=== PATIENT | male | born 1995 ===

== ENCOUNTER 2016-09-09 05:32 | Emergency (ER) | payer MEDICAID, OTHER ==
[~2016-09-09] VITALS: Ht 175.3 cm; Wt 65.0 kg
--- NOTE | 2016-09-09 05:54 | PD ---
HPI Chief Complaint: Tobar act Time Seen by Provider: 05:49 Travel History International Travel<30 days: No Contact w/Intl Traveler<30days: No Traveled to known affect area: No History of Present Illness HPI 21-year-old white male presents to emergency department under Tobar act by PD. The patient made suicidal statements to his significant other. The patient states that he gets upset over things that have happened in the past. He made suicidal statements but has no intentions on hurting himself. He denies any toxic ingestions. He does admit to drinking alcohol last evening. He denies making any suicide gesture cuts on his body. 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 The patient reports an insect bite to his right earlobe 2 days ago causing it to become swollen and bruised. It open a ruptured last evening and his significant other squeezed it. He denies any other medical complaints. He denies any fever or chills. No chest pain or shortness of breath. PFSH Past Medical History Medical History: Denies Significant Hx Tetanus Vaccination: < 5 Years Past Surgical History Surgical History: No Previous Surgery Social History Alcohol Use: Yes Tobacco Use: Yes Substance Use: Yes Allergies-Medications (Allergen,Severity, Reaction): Coded Allergies: Amoxicillin (Verified Allergy, Unknown, 09/09/16) Per pt. Penicillin (Verified Allergy, Unknown, 09/09/16) Per pt. Uncoded Allergies: "-cillins" (Allergy, Unknown, 09/09/16) Per pt...."my mother told me not to take them". Stated she told him he was allergic to them. Reported Meds & Prescriptions Reported Meds & Active Scripts Active No Active Prescriptions or Reported Medications Review of Systems Except as stated in HPI: all other systems reviewed are Neg Psychiatric: Positive: Depression, Mood Disorder, Substance Abuse, No: Anxiety , Suicidal Ideations, Disorder of Thought, Homicidal Ideation Physical Exam Narrative GENERAL: Well-nourished, well-developed patient. SKIN: Warm and dry. The patient's right ear lobe is edematous and there is an open draining lesion to the posterior aspect of the pinna. The patient has suicide gesture cuts to the right forearm and right lower abdomen. HEAD: Normocephalic and atraumatic. EYES: No scleral icterus. No injection or drainage. ENT: No nasal drainage noted. Mucous membranes pink. Airway patent. NECK: Supple, trachea midline. Moves head freely without obvious discomfort. CARDIOVASCULAR: Regular rate and rhythm without murmurs, gallops, or rubs. RESPIRATORY: Breath sounds equal bilaterally. No accessory muscle use. GASTROINTESTINAL: Abdomen soft, non-tender, nondistended. EXTREMITIES: No cyanosis or edema. BACK: Nontender without obvious deformity. No CVA tenderness. NEURO: Patient is alert and oriented. no sensorimotor deficits. Nonfocal. Normal speech. PSYCH: Poor insight and judgment. No delusions. No auditory hallucinations. Data Data Last Documented VS Vital Signs Date Time Temp Pulse Resp B/P Pulse Ox O2 Delivery O2 Flow Rate FiO2 09/09/16 11:50 98.5 89 18 116/59 98 Room Air Orders Complete Blood Count With Diff (09/09/16 05:48) Comprehensive Metabolic Panel (09/09/16 05:48) Psych Screen (09/09/16 05:48) Drug Screen, Random Urine (09/09/16 05:48) Alcohol (Ethanol) (09/09/16 05:48) Salicylates (Aspirin) (09/09/16 05:48) Tylenol (Acetaminophen) (09/09/16 05:48) Diphenhydramine Inj (Benadryl Inj) (09/09/16 06:00) Haloperidol Inj (Haldol Inj) (09/09/16 06:00) Restraints Violent (09/09/16 05:55) Wound Culture And Gram Stain (09/09/16 09:18) Sulfamet-Trimeth Ds 800-160 Mg (Bactrim (09/09/16 09:30) Cephalexin (Keflex) (09/09/16 12:00) Diet Regular Basic (09/09/16 Lunch) Diet Regular Basic (09/09/16 Dinner) Labs Laboratory Tests Test 09/09/16 06:15 White Blood Count 17.0 TH/MM3 Red Blood Count 5.35 MIL/MM3 Hemoglobin 16.8 GM/DL Hematocrit 49.0 % Mean Corpuscular Volume 91.4 FL Mean Corpuscular Hemoglobin 31.4 PG Mean Corpuscular Hemoglobin 34.4 % Concent Red Cell Distribution Width 13.1 % Platelet Count 296 TH/MM3 Mean Platelet Volume 9.2 FL Neutrophils (%) (Auto) 73.5 % Lymphocytes (%) (Auto) 18.3 % Monocytes (%) (Auto) 7.4 % Eosinophils (%) (Auto) 0.3 % Basophils (%) (Auto) 0.5 % Neutrophils # (Auto) 12.5 TH/MM3 Lymphocytes # (Auto) 3.1 TH/MM3 Monocytes # (Auto) 1.3 TH/MM3 Eosinophils # (Auto) 0.0 TH/MM3 Basophils # (Auto) 0.1 TH/MM3 CBC Comment DIFF FINAL Differential Comment Sodium Level 142 MEQ/L Potassium Level 4.2 MEQ/L Chloride Level 106 MEQ/L Carbon Dioxide Level 18.8 MEQ/L Anion Gap 17 MEQ/L Blood Urea Nitrogen 8 MG/DL Creatinine 1.27 MG/DL Estimat Glomerular Filtration 72 ML/MIN Rate Random Glucose 100 MG/DL Calcium Level 9.3 MG/DL Total Bilirubin 0.6 MG/DL Aspartate Amino Transf 45 U/L (AST/SGOT) Alanine Aminotransferase 24 U/L (ALT/SGPT) Alkaline Phosphatase 99 U/L Total Protein 8.3 GM/DL Albumin 4.7 GM/DL Salicylates Level 3.2 MG/DL Urine Opiates Screen NEG Acetaminophen Level LESS THAN 2.0 MCG/ML Urine Barbiturates Screen NEG Urine Amphetamines Screen NEG Urine Benzodiazepines Screen POS Urine Cocaine Screen NEG Urine Cannabinoids Screen POS Ethyl Alcohol Level 99 MG/DL MDM Medical Decision Making Medical Screen Exam Complete: Yes Emergency Medical Condition: Yes Medical Record Reviewed: Yes Interpretation(s) Laboratory Tests Test 09/09/16 06:15 White Blood Count 17.0 TH/MM3 Red Blood Count 5.35 MIL/MM3 Hemoglobin 16.8 GM/DL Hematocrit 49.0 % Mean Corpuscular Volume 91.4 FL Mean Corpuscular Hemoglobin 31.4 PG Mean Corpuscular Hemoglobin 34.4 % Concent Red Cell Distribution Width 13.1 % Platelet Count 296 TH/MM3 Mean Platelet Volume 9.2 FL Neutrophils (%) (Auto) 73.5 % Lymphocytes (%) (Auto) 18.3 % Monocytes (%) (Auto) 7.4 % Eosinophils (%) (Auto) 0.3 % Basophils (%) (Auto) 0.5 % Neutrophils # (Auto) 12.5 TH/MM3 Lymphocytes # (Auto) 3.1 TH/MM3 Monocytes # (Auto) 1.3 TH/MM3 Eosinophils # (Auto) 0.0 TH/MM3 Basophils # (Auto) 0.1 TH/MM3 CBC Comment DIFF FINAL Differential Comment Sodium Level 142 MEQ/L Potassium Level 4.2 MEQ/L Chloride Level 106 MEQ/L Carbon Dioxide Level 18.8 MEQ/L Anion Gap 17 MEQ/L Blood Urea Nitrogen 8 MG/DL Creatinine 1.27 MG/DL Estimat Glomerular Filtration 72 ML/MIN Rate Random Glucose 100 MG/DL Calcium Level 9.3 MG/DL Total Bilirubin 0.6 MG/DL Aspartate Amino Transf 45 U/L (AST/SGOT) Alanine Aminotransferase 24 U/L (ALT/SGPT) Alkaline Phosphatase 99 U/L Total Protein 8.3 GM/DL Albumin 4.7 GM/DL Salicylates Level 3.2 MG/DL Urine Opiates Screen NEG Acetaminophen Level LESS THAN 2.0 MCG/ML Urine Barbiturates Screen NEG Urine Amphetamines Screen NEG Urine Benzodiazepines Screen POS Urine Cocaine Screen NEG Urine Cannabinoids Screen POS Ethyl Alcohol Level 99 MG/DL Differential Diagnosis MDM: High Differential diagnoses: Schizophrenia, schizoaffective disorder, bipolar, anxiety, depression, adjustment reaction, mood disorder NOS, ODD, depressive disorder NOS, dementia, dementia with agitation, psychosis NOS, substance induced mood disorder, intermittent explosive disorder, Asperger syndrome, infection,electrolyte abnormality, malingering. Narrative Course Mental health screening discussed with the patient. Psychiatric screen ordered. 0 550 The patient has become increasingly agitated and threatening to become combative with staff. The patient is yelling and using profanity. He is refusing to cooperate and his agitation is threatening to the staff. I'm concerned for staff safety and violent restraint have been ordered. The patient will be placed in 5. restraints and Haldol 5 mg and 50 mg Benadryl IM. The patient is taken out of restraints per protocol. The patient has been medically cleared. This is substance induced mood disorder Diagnosis Primary Impression: Substance induced mood disorder Scripts No Active Prescriptions or Reported Meds Condition: Jaspal Lorenz September 09, 2016 05:54
[2016-09-09] MEDS ORDERED: diphenhydrAMINE HCL 50 MG/ML VIAL IV PUSH ONE (06:00)
[2016-09-09] MEDS ORDERED: HALOPERIDOL LACTATE 5 MG/ML AMP IM ONE (06:00)
[2016-09-09 06:14] VITALS: BP 114/58; PULSE 99; RESP 15; TEMP 98.6; O2SAT 96
[2016-09-09 06:36] LABS: AMPHETAMINE, URINE NEG (NEG); BARBITURATES, URINE NEG (NEG); COCAINE, URINE NEG (NEG)
[2016-09-09 06:43] LABS: AUTOMATED NEUTROPHIL # 12.5 TH/MM3 (1.8-7.7); BASOPHIL # 0.1 TH/MM3 (0-0.2); BASOPHIL % 0.5 % (0.0-2.0); EOSINOPHIL % 0.3 % (0.0-4.0); HEMO FLAGS DIFF FINAL; LYMPH % 18.3 % (9.0-44.0); LYMPHOCYTE # 3.1 TH/MM3 (1.0-4.8); MEAN CELL VOLUME 91.4 FL (80.0-100.0); MEAN CORPUSCULAR HEMOGLOBIN 31.4 PG (27.0-34.0); MEAN CORPUSCULAR HGB CONC 34.4 % (32.0-36.0); MONO % 7.4 % (0.0-8.0); NEUT % 73.5 % (16.0-70.0); PLATELET COUNT 296 TH/MM3 (150-450); RED BLOOD COUNT 5.35 MIL/MM3 (4.50-5.90); RED CELL DISTRIBUTION WIDTH 13.1 % (11.6-17.2)
[2016-09-09 06:46] LABS: ANION GAP 17 MEQ/L (5-15)
[2016-09-09 06:49] LABS: ALKALINE PHOSPHATASE 99 U/L (45-117); ALT (GPT) 24 U/L (9-52); AST (GOT) 45 U/L (15-39); BICARBONATE 18.8 MEQ/L (21.0-32.0); BLOOD UREA NITROGEN 8 MG/DL (7-18); CHLORIDE 106 MEQ/L (98-107); GLOMERULAR FILTRATION RATE 72 ML/MIN (>89); POTASSIUM 4.2 MEQ/L (3.5-5.1); SODIUM (NA) 142 MEQ/L (136-145); TOTAL BILIRUBIN ADULT 0.6 MG/DL (0.2-1.0)
[2016-09-09 06:56] LABS: ACETAMINOPHEN LESS THAN 2.0 MCG/ML (10.0-30.0)
[2016-09-09 07:07] VITALS: BP 107/53; PULSE 90; RESP 18; O2SAT 95
[2016-09-09 09:10] VITALS: BP 118/57; PULSE 90; RESP 18; O2SAT 99
[2016-09-09] MEDS ORDERED: SULFAMETHOXAZOLE-TRIMETHOPRIM DS 800-160 MG TAB PO SCH (09:30)
[2016-09-09 11:50] VITALS: BP 116/59; PULSE 89; RESP 18; TEMP 98.5; O2SAT 98
[2016-09-09] MEDS ORDERED: CEPHALEXIN MONOHYDRATE 500 MG CAP PO SCH (12:00)
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
== END 2016-09-09 17:40 | disposition home or self-care (01) ==
LOC: NEPD 05:32 → NEPJ 17:40
DX: F19.94 Other psychoactive substance use, unspecified with psychoactive substance-induced mood disorder (principal); F10.129 Alcohol abuse with intoxication, unspecified; Z72.0 Tobacco use
CPT/HCPCS: 80053; 80307; 85025; 86403; 87070; 96372; 96374; 99284; J1200; J1630